=== PATIENT | female | born 1995 | race Caucasian/White ===

== ENCOUNTER 2019-01-31 17:05 | Emergency (ER) | payer SELFPAY ==
[~2019-01-31] VITALS: Ht 167.6 cm; Wt 66.8 kg
--- NOTE | 2019-01-31 18:10 | NUR ---
PT TO ROOM FROM LOBBY AT THIS TIME.
--- NOTE | 2019-01-31 18:18 | NUR ---
PT REPORTS SHE HAS HAD N/V FOR ABOUT A WEEK. PT STATES SHE MIGHT BE AND THAT SHE ALSO WANTS TO BE TESTED FOR STDS BECAUSE SHE HAS HAD A NEW SEXUAL PARTNER SINCE LAST BEING TESTED.
[2019-01-31 19:06] LABS: BASOPHILS # (AUTO) 0.03 x10^3/uL (0-0.1); BASOPHILS % (AUTO) 1 % (0-1); EOSINOPHILS # (AUTO) 0.16 x10^3/uL (0-0.4); EOSINOPHILS % (AUTO) 3 % (1-7); LYMPHOCYTES # (AUTO) 1.45 x10^3/uL (1-3.4); LYMPHOCYTES % (AUTO) 25 % (22-44); MD NO; MEAN CORPUSCULAR HEMOGLOBIN 29.1 pg (27.0-34.8); MEAN CORPUSCULAR HGB CONC 32.9 g/dL (32.4-35.8); MEAN CORPUSCULAR VOLUME 88.4 fL (80-100); MEAN PLATELET VOLUME 9.1 fL (7.4-10.4); MONOCYTES # (AUTO) 0.57 x10^3/uL (0.2-0.8); MONOCYTES % (AUTO) 10 % (2-9); NEUTROPHILS # (AUTO) 3.62 x10^3/uL (1.8-6.8); NEUTROPHILS % (AUTO) 62 % (42-75); PLATELET COUNT 222 x10^3/uL (130-400); RED BLOOD COUNT 4.14 x10^6/uL (3.82-5.3); RED CELL DISTRIBUTION WIDTH 14.5 % (9.6-15.2)
--- NOTE | 2019-01-31 19:09 | NUR ---
REPORT FROM MARTIN CURRAN
[2019-01-31 19:18] LABS: ALBUMIN 3.3 g/dL (3.4-5.0); ANION GAP 5 mmol/L (5-15); CALCIUM 8.6 mg/dL (8.5-10.1); CHLORIDE 111 mmol/L (98-107); CREATININE 0.73 mg/dL (0.55-1.02)
--- NOTE | 2019-01-31 19:28 | NUR ---
LUNCH RN: SHAKIR COLLECTED AND SENT TO LAB
[2019-01-31 19:35] VITALS: BP 89/56
[2019-01-31 19:39] LABS: MICROSCOPIC NOT IND
[2019-01-31 19:48] LABS: CULTURE INDICATED? NO
--- NOTE | 2019-01-31 20:20 | NUR ---
PT IN US
--- NOTE | 2019-01-31 21:05 | NUR ---
DC EDUCATION PROVIDED PT DEMONSTRATES UNDERSTANDING. PT AMBULATED STEADILY TO DC WITH RN
== END 2019-01-31 21:07 | disposition home or self-care (01) ==
LOC: ED 21:01
DX: R10.31 Right lower quadrant pain (principal); R10.30 Lower abdominal pain, unspecified; Z87.891 Personal history of nicotine dependence
CPT/HCPCS: 36415; 76830; 80048; 81003; 82040; 84702; 85025; 86901; 99284